=== PATIENT | male | born 1985 | race Caucasian/White ===

== ENCOUNTER 2016-12-04 09:07 | Emergency (ER) | payer OTHER ==
[~2016-12-04] VITALS: Ht 170.2 cm; Wt 96.3 kg
[~2016-12-04 09:07] MED LIST: OXYC1TAB3 PO; TAMS0.4C38 PO
[2016-12-04 09:13] VITALS: TEMP 36.6; Ht 170.2 cm; Wt 96.3 kg
--- NOTE | 2016-12-04 10:15 | DIAGNOSTIC IMAGING REPORT ---
CT LUMBAR SPINE WITHOUT CT DOSE: 604.79 mGycm CLINICAL HISTORY: Low back pain TECHNIQUE: Helical images were acquired in transverse plane. Reformatted sagittal and coronal images were reviewed. CONTRAST: No contrast was administered COMPARISON STUDY: None. FINDINGS: L1-2 level: There is no evidence of significant disc bulge or focal herniation. There is no evidence of spinal or foraminal stenosis. L2-3 level: There is no evidence of significant disc bulge or focal herniation. There is no evidence of spinal or foraminal stenosis. L3-4 level: There is no evidence of significant disc bulge or focal herniation. There is no evidence of spinal or foraminal stenosis. L4-5 level: There is a minimal circumferential disc bulge. There is minimal triangular spinal canal narrowing. There is no significant foraminal narrowing. L5-S1 level: There is no evidence of significant disc bulge or focal herniation. There is no evidence of spinal or foraminal stenosis. There is bilateral nephrolithiasis No fractures or traumatic subluxations are visualized. IMPRESSION: 1. No fractures or subluxations identified 2. Minor circumferential disc bulge at the L4-5 level with minimal triangular spinal canal narrowing 3. Bilateral nephrolithiasis Electronically signed by: Amadou Iyer M.D. 12/04/2016 10:13 AM Dictated Date/Time: 12/04/2016 10:11 AM
[2016-12-04] MEDS ORDERED: KETO10TA PO (10:42)
--- NOTE | 2016-12-04 10:44 | EMERGENCY ROOM VISIT NOTE ---
History Report prepared by Michelle: Mick Wu Under the Supervision of: Dr. Rainer Castaneda D.O. First contact with patient: 09:38 Chief Complaint: BACK PAIN Stated Complaint: LOWER BACK PAIN - SHOOTING PAIN INTO LEGS History of Present Illness The patient is a 31 year old male who presents to the Emergency Room with complaints of lower back pain that began yesterday. He rates his pain a 7/10 in severity. 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 Occasionally, his pain will shoot down his bilateral legs. His pain worsens with movement. If he does not move, his pain is less. He had similar pain in his back before, but it has never been this bad. Source of History: patient Onset: This morning Position: back (lower) Symptom Intensity: 7/10 Quality: sharp Timing: constant Modifying Factors (Worsening): movement Modifying Factors (Relieving): rest Note: He denies any other abnormal symptoms. Review of Systems See HPI for pertinent positives & negatives. A total of 10 systems reviewed and were otherwise negative. Past Medical & Surgical Medical Problems: (1) Acute Pharyngitis (2) Acute Tonsillitis (3) Head Injury, Nos (4) Laceration of lower extremity Family History Diabetes mellitus Heart disease Social History Smoking Status: Never Smoker Alcohol Use: occasionally Marital Status: Occupation Status: employed Current/Historical Medications Scheduled PRN Ketorolac (Toradol), 10 MG PO Q6H PRN for Pain Allergies Coded Allergies: No Known Allergies (Unverified , 12/25/13) Physical Exam Vital Signs Date Time Temp Pulse Resp B/P Pulse Ox O2 Delivery O2 Flow Rate FiO2 12/04/16 09:13 36.6 74 18 114/75 96 Room Air Physical Exam CONSTITUTIONAL/VITAL SIGNS: Reviewed / noted above. GENERAL: Appearance of discomfort with movement. INTEGUMENTARY: Warm, dry, and [place]. HEAD: Normocephalic. EYES: without scleral icterus or trauma. ENT/OROPHARYNX: clear and moist. LYMPHADENOPATHY/NECK: Is supple without lymphadenopathy or meningismus. RESPIRATORY: Lungs clear and equal. CARDIOVASCULAR: Regular rate and rhythm. GI/ABDOMEN: Soft and nontender. No organomegaly or pulsatile mass. No rebound or guarding. Normal bowel sounds. EXTREMITIES: Warm and well perfused. Symmetric reflexes and strength in lower extremities. No motor sensory deficits. BACK: No CVA tenderness. Mild straight leg raise discomfort on the right. NEUROLOGICAL: Intact without focal deficits. PSYCHIATRIC: normal affect. MUSCULOSKELETAL: Normally developed with good muscle tone. Medical Decision & Procedures ER Provider Diagnostic Interpretation: Radiology results as stated below per my review and radiologist interpretation: CT LUMBAR SPINE WITHOUT CT DOSE: 604.79 mGycm CLINICAL HISTORY: Low back pain TECHNIQUE: Helical images were acquired in transverse plane. Reformatted sagittal and coronal images were reviewed. CONTRAST: No contrast was administered COMPARISON STUDY: None. FINDINGS: L1-2 level: There is no evidence of significant disc bulge or focal herniation. There is no evidence of spinal or foraminal stenosis. L2-3 level: There is no evidence of significant disc bulge or focal herniation. There is no evidence of spinal or foraminal stenosis. L3-4 level: There is no evidence of significant disc bulge or focal herniation. There is no evidence of spinal or foraminal stenosis. L4-5 level: There is a minimal circumferential disc bulge. There is minimal triangular spinal canal narrowing. There is no significant foraminal narrowing. L5-S1 level: There is no evidence of significant disc bulge or focal herniation. There is no evidence of spinal or foraminal stenosis. There is bilateral nephrolithiasis No fractures or traumatic subluxations are visualized. IMPRESSION: 1. No fractures or subluxations identified 2. Minor circumferential disc bulge at the L4-5 level with minimal triangular spinal canal narrowing 3. Bilateral nephrolithiasis Electronically signed by: Amadou Iyer M.D. 12/04/2016 10:13 AM Dictated Date/Time: 12/04/2016 10:11 AM ED Course 0938: Previous medical records were reviewed. The patient was evaluated in room B4. A complete history and physical examination was performed. 1046: On reevaluation, the patient is resting. I discussed the results and findings with the patient. He verbalized agreement of the treatment plan. He was discharged home. Medical Decision Differential considered includes cauda equina syndrome, conus medullaris, spinal cord compression syndrome, peripheral nerve compression, fractures or subluxations, intra-abdominal pathology such as abdominal aortic aneurysm or kidney stones, muscle strain, transverse myelitis, spinal cord injury. This is a 31-year-old male who presents to the ED with chief complaint of low back pain. Details listed above. The patient denies any specific injury or trauma. He does work in construction. He states that he awoke with the pain yesterday. He states that the pain occasionally shoots down both of his legs. Currently it is just in his low back. He has obvious increased discomfort with movement on exam. His exam was otherwise unremarkable. His lower strongly neurovascular status is normal. CT scan of the LS spine reveals some minor disc bulges at the L4-L5 level. Otherwise no acute abnormality. He does have a history of kidney stones. His clinical presentation is not consistent with that. The patient was told the results the test. He was discharged on Toradol. He is to follow-up with PCP for further evaluation and care if symptoms persist. Impression Primary Impression: Low back pain Scribe Attestation The scribe's documentation has been prepared under my direction and personally reviewed by me in its entirety. I confirm that the note above accurately reflects all work, treatment, procedures, and medical decision making performed by me. Departure Information Dispostion Home / Self-Care Prescriptions Ketorolac (Toradol) 10 Mg Tab 10 MG PO Q6H Y for Pain, #20 TAB Prov: Rainer Castaneda D.O. 12/04/16 Referrals No Doctor, Assigned (PCP) Forms HOME CARE DOCUMENTATION FORM, IMPORTANT VISIT INFORMATION Patient Instructions Low Back Pain Self Care, My [facility] Additional Instructions Toradol as prescribed for pain. Follow-up with your doctor for further care and evaluation in 3-7 days if symptoms persist. Return to the emergency department for worsening or new symptoms or any concerns. You have been examined and treated today on an emergency basis only. This is not a substitute for, or an effort to provide, complete comprehensive medical care. It is impossible to recognize and treat all injuries or illnesses in a single emergency department visit. It is therefore important that you follow up closely with your doctor. Call as soon as possible for an appointment.
[2016-12-04 10:58] VITALS: BP 136/85; PULSE 64; O2SAT 98
--- NOTE | 2016-12-04 14:57 | Pharmacy Progress Note ---
ED Pharmacist Progress Note Date of Service: December 04, 2016. Pharmacist Bessie called from [facility] pharmacy stating that the Toradol that was prescribed for this patient is not covered by the patient's insurance and the jon is $45.00, which the patient was not willing to pay. I spoke with Dr Castaneda, he stated the patient could have either IBU 600mg PO Q 6 hrs PRN pain # 20, or Naproxen 550mg PO BID PRN pain # 10 - given multiple choices, but only one NSAID may be filled for this patient. I attempted to speak with the pharmacist, however was placed on hold for over 10 minutes. Message was left on the voicemail stating he could have either IBU or Naproxen whichever was cheaper for him but he may only have one.
== END 2016-12-04 10:59 | disposition home or self-care (01) ==
LOC: C.EDB 09:09
DX: M54.5 Low back pain (principal); Z83.3 Family history of diabetes mellitus; Z87.442 Personal history of urinary calculi

== ENCOUNTER 2016-12-09 09:50 | Emergency (ER) | payer OTHER ==
[~2016-12-09 09:50] MED LIST changes: +KETO10TA PO; -OXYC1TAB3 PO; -TAMS0.4C38 PO
[2016-12-09 09:52] VITALS: TEMP 36.7; Ht 170.2 cm
[2016-12-09] MEDS ORDERED: MoRPHine SULFATE 10 MG/ML CARP/VIAL IM STA (10:26)
[2016-12-09] MEDS ORDERED: DEXAMETHASONE SOD INJ 4 MG/ML VIAL IM ONE (10:30)
[2016-12-09] MEDS ORDERED: PRED-301 PO (10:37)
--- NOTE | 2016-12-09 12:02 | DIAGNOSTIC IMAGING REPORT ---
LUMBAR SPINE MRI HISTORY: Pain low back pain, radiation b/l legs TECHNIQUE: Multiplanar multisequence MRI of the lumbar spine was performed without the use of contrast. COMPARISON: None. FINDINGS: For the purpose of the report the L5-S1 disc space will be located on axial image 27 of 30. Normal signal characteristics the vertebral bodies. Mild disc desiccation L4-L5. L1-L2: No significant central canal or neural foraminal narrowing. L2-L3: No significant central canal or neural foraminal narrowing. L3-L4: No significant central canal or neural foraminal narrowing. L4-L5: Central bulging disc creating mild impact anterior thecal sac. Neuroforamina are patent bilaterally. L5-S1: No significant central canal or neural foraminal narrowing. IMPRESSION: 1. Central bulging disc L4-L5.. 2. Minimal impact upon the anterior thecal sac. 3. Study is otherwise negative. Electronically signed by: David Fierro M.D. 12/09/2016 12:01 PM Dictated Date/Time: 12/09/2016 12:00 PM
[2016-12-09] MEDS ORDERED: OXYC-57 PO (12:42)
--- NOTE | 2016-12-09 12:43 | EMERGENCY ROOM VISIT NOTE ---
History First contact with patient: 09:57 Chief Complaint: BACK PAIN Stated Complaint: BACK PAIN History of Present Illness The patient is a 31 year old male who presents to the Emergency Room with complaints of low back pain. The patient states he has had pain in the low back for the past 5 days. The patient states that the pain came on gradually. He was seen here last week and had a CT scan. He was prescribed an anti- inflammatory and has been taking that over the weekend. He states that he also followed up with his primary care provider 3 days ago and they started him on a prednisone taper. The patient was feeling better and was sent to to go back to work yesterday. He states that when he bent over, he felt a pop in his back and had increased pain since then. He has had difficulty moving and walking due to the pain. He was seen by his primary care provider yesterday and prescribed a muscle relaxer which she is taking without relief. He denies taking any other medications for pain. He rates his pain a 9/10. The pain radiates down both of the legs. He denies any numbness, weakness, abdominal pain, nausea/vomiting, urinary symptoms, bowel or bladder incontinence. He denies any history of back problems. Review of Systems A complete 6 point review of systems was reviewed with the patient with pertinent positives and negatives as per history of present illness. All else were negative. Past Medical/Surgical History Medical Problems: (1) Acute Pharyngitis (2) Acute Tonsillitis (3) Head Injury, Nos (4) Laceration of lower extremity Family History Diabetes mellitus Heart disease Social History Smoking Status: Former Smoker Alcohol Use: occasionally Marital Status: Occupation Status: employed Current/Historical Medications Scheduled Prednisone (Prednisone), 0 PO UD Scheduled PRN Oxycodone/Acetaminophen 5MG/325MG (Percocet 5MG/325MG), 1-2 TABS PO Q4H PRN for Pain Allergies Coded Allergies: No Known Allergies (Unverified , 12/09/16) Physical Exam Vital Signs Date Time Temp Pulse Resp B/P Pulse Ox O2 Delivery O2 Flow Rate FiO2 12/09/16 12:54 75 18 119/77 96 12/09/16 11:05 82 18 131/72 98 Room Air 12/09/16 09:52 36.7 105 18 134/85 97 Room Air Physical Exam VITALS: Vitals are noted on the nurse's note and reviewed by myself. No abnormalities noted. GENERAL: This is a 31-year-old male, in no acute distress, nondiaphoretic, well- developed well-nourished. SKIN: The skin was without rashes. EYES: Pupils equal round and reactive to light and accommodation. NECK: Supple without nuchal rigidity. No cervical spine tenderness. HEART: Regular rate and rhythm without murmurs gallops or rubs. LUNGS: Clear to auscultation bilaterally without wheezes, rales or rhonchi. ABDOMEN: MUSCULOSKELETAL: No muscle atrophy, erythema, or edema noted of the back. There is no tenderness over the lumbar spinous processes. There is tenderness over the left lumbar region. There is no tenderness over the thoracic spine or paraspinous muscles. There are no muscle spasms present. The patient is slow to move around but has full range of motion of the spine. Negative straight leg raise test. Strength is slightly decreased in the left lower extremity compared to the right. NEURO: Patient was alert and oriented to person place and time. Normal sensation to light and sharp touch. Deep tendon reflexes 2+ in the lower extremities. Dorsalis pedis pulse 2+ bilaterally. Medical Decision & Procedures ER Provider Diagnostic Interpretation: LUMBAR SPINE MRI HISTORY: Pain low back pain, radiation b/l legs TECHNIQUE: Multiplanar multisequence MRI of the lumbar spine was performed without the use of contrast. COMPARISON: None. FINDINGS: For the purpose of the report the L5-S1 disc space will be located on axial image 27 of 30. Normal signal characteristics the vertebral bodies. Mild disc desiccation L4-L5. L1-L2: No significant central canal or neural foraminal narrowing. L2-L3: No significant central canal or neural foraminal narrowing. L3-L4: No significant central canal or neural foraminal narrowing. L4-L5: Central bulging disc creating mild impact anterior thecal sac. Neuroforamina are patent bilaterally. L5-S1: No significant central canal or neural foraminal narrowing. IMPRESSION: 1. Central bulging disc L4-L5.. 2. Minimal impact upon the anterior thecal sac. 3. Study is otherwise negative. Medications Administered Medications (Trade) Dose Ordered Sig/Shalom Route Start Time Stop Time Status Last Admin Dose Admin Dexamethasone Sodium Phosphate (Decadron Inj) 10 mg NOW ONCE IM 12/09/16 10:30 12/09/16 10:31 DC 12/09/16 10:37 10 MG Morphine Sulfate (MoRPHine SULFATE INJ) 8 mg NOW STAT IM 12/09/16 10:26 12/09/16 10:28 DC 12/09/16 10:38 8 MG Medical Decision Differential diagnosis includes herniated disc, muscular strain, epidural abscess, cauda equina syndrome, malignancy, among others. The patient was evaluated as above. Previous records were reviewed. The patient was seen here last week for the same symptoms. At that time, a CT scan was performed which showed a bulging disc at L4 and L5. The patient was discharged home on Toradol but states that the insurance would not cover it and it was later changed to naproxen. The patient states his symptoms are worsening and he is unable to walk due to the pain. For this reason, an MRI was performed which did show some mild disc bulging at L4 to L5. The patient and his or informed of these findings and I had a lengthy discussion with him regarding today's testing and the treatment plan. The patient was treated with 8 mg morphine IM and 10 mg Decadron IM in the emergency department. He did feel better and was able to move more comfortably after this treatment. He will be given a short course of pain medication but was instructed to follow-up with his primary care provider and a camp recreation specialist for further evaluation of his ongoing back pain. He verbalized understanding of my assessment and treatment plan and was discharged home in good condition. [place] Drug Monitoring Program Search Results: patient reviewed within database, no issues identified Impression Primary Impression: L4-L5 disc bulge Departure Information Dispostion Home / Self-Care Condition GOOD Prescriptions Oxycodone/Acetaminophen 5MG/325MG (PERCOCET 5MG/325MG) Tab 1-2 TABS PO Q4H Y for Pain, #15 TAB For Initial Treatment Prov: Alicia Streeter ., JENN 12/09/16 Referrals Ronit Wood DO (PCP) Adin Monroy DO Forms HOME CARE DOCUMENTATION FORM, IMPORTANT VISIT INFORMATION Patient Instructions My [facility] Additional Instructions You have been treated in the Emergency Department for Back Pain. You have received pain medicine in the emergency department which impairs your ability to operate a vehicle. It is illegal for you to drive after receiving these medicines. You have been prescribed Percocet to be used for pain control. This is a narcotic medication. You cannot drive or consume alcohol while on this medicine. This medicine should only be used for pain that cannot be controlled with [id number] pain medicines. For pain control, you can use the following [id number] medicines (if >12 yo): - Regular strength (325mg/tab) Tylenol (acetaminophen) 2 tabs every 4-6 hours as needed. Do not exceed 12 tablets in a 24 hour period. Avoid taking more than 4 grams (4000 mg) of Tylenol per day. This includes any other sources of acetaminophen you may take on a regular basis. - Regular strength (200 mg/tab) Advil (ibuprofen) 1-2 tabs every 4-6 hours as needed. Do not exceed a dose of 3200 mg per day. If this is an acute injury, ice can be applied to the area of pain for the first 3 days to help decrease pain and inflammation. After the first 3 days, a heating pad can be used over the area for continued soothing relief. You should schedule a follow-up appointment in 2-3 days with your Primary Care Provider for further evaluation and treatment of your back pain. Follow up with Dr. Monroy. Return to the Emergency Department if your current symptoms worsen despite treatment course outlined above, or if you develop any of the following symptoms : intractable pain despite aforementioned treatment course, loss of control of your bowel or bladder, numbness or tingling in your groin, or development of a fever.
[2016-12-09 12:54] VITALS: BP 119/77; PULSE 75; O2SAT 96
== END 2016-12-09 12:55 | disposition home or self-care (01) ==
LOC: C.EDB 09:52
DX: M51.26 Other intervertebral disc displacement, lumbar region (principal); Z83.3 Family history of diabetes mellitus; Z87.891 Personal history of nicotine dependence

== ENCOUNTER 2017-05-11 17:13 | Emergency (ER) | payer OTHER ==
[~2017-05-11] VITALS: Ht 170.2 cm; Wt 103.0 kg
[~2017-05-11 17:13] MED LIST changes: -KETO10TA PO; +OXYC-57 PO; +PRED-301 PO
[2017-05-11 17:17] VITALS: TEMP 36.8
[2017-05-11] MEDS ORDERED: DULO-24 PO (17:50)
[2017-05-11 17:52] VITALS: O2SAT 98; Ht 170.2 cm; Wt 103.0 kg
[2017-05-11 17:52] LABS: BASO % 0.3 %; BASO ABS # 0.02 K/uL (0-0.2); COMPLETE YES; EOS % 1.2 %; HEMATOCRIT 42.6 % (42-52); IG% 0.3 %; LYMPH % 22.9 %; LYMPH ABS # 1.71 K/uL (1.2-3.4); MEAN CELL VOLUME 86.8 fL (80-100); MEAN CORPUSCULAR HEMOGLOBIN 29.7 pg (25-34); MEAN CORPUSCULAR HGB CONC 34.3 g/dl (32-36); MEAN PLATELET VOLUME 10.2 fL (7.4-10.4); MONO % 6.8 %; NEUT % 68.5 %; PLATELET COUNT 182 K/uL (130-400); RED BLOOD COUNT 4.91 M/uL (4.7-6.1); WHITE BLOOD COUNT 7.46 K/uL (4.8-10.8)
[2017-05-11 18:05] LABS: PARTIAL THROMBOPLASTIN RATIO 1.3; PROTHROMBIN TIME (PATIENT) 10.3 SECONDS (9.0-12.0)
[2017-05-11 18:10] LABS: BUN/CREATININE RATIO 12.3 (10-20); CALCIUM 8.9 mg/dl (8.5-10.1); CREATININE 0.8 mg/dl (0.60-1.40); POTASSIUM 3.8 mmol/L (3.5-5.1)
--- NOTE | 2017-05-11 18:31 | DIAGNOSTIC IMAGING REPORT ---
RIGHT LOWER EXTREMITY VENOUS DOPPLER HISTORY: Right leg pain and swelling. EVALUATE FOR DVT COMPARISON STUDY: None. FINDINGS: There is normal compressibility, flow, and augmentation within the right lower extremity deep venous system. Mildly enlarged right inguinal lymph node measuring 2.9 x 1.3 x 1.2 cm. Subcutaneous edema within the lower calf. IMPRESSION: No DVT within the right lower extremity. Mildly enlarged right inguinal lymph node. Electronically signed by: Massimo Arreola M.D. 05/11/2017 6:30 PM Dictated Date/Time: 05/11/2017 6:29 PM
[2017-05-11] MEDS ORDERED: CEFTRIAXONE SOD INJ 1 GM ADDVIAL IV STA (18:37)
[2017-05-11] MEDS ORDERED: SEPTRA DS HOME PACK 1 EA VIAL PO ONE ×2 (18:45→19:00)
[2017-05-11] MEDS ORDERED: CEPH500C PO (18:46)
[2017-05-11] MEDS ORDERED: SULF800T23 PO (18:46)
[2017-05-11 19:31] VITALS: BP 134/84; PULSE 86; O2SAT 99
--- NOTE | 2017-05-11 22:01 | EMERGENCY ROOM VISIT NOTE ---
History First contact with patient: 17:21 Chief Complaint: LEG PAIN,LEG INJURY Stated Complaint: RT LEG, PAIN AND SWELLING- R/O DVT History of Present Illness The patient is a 31 year old male who presents to the Emergency Room with complaints of right leg pain and swelling that is slightly erythematous and then progressively worse over the past week he was started on Keflex by [facility]. No history of MRSA. No recent travel. He does chew tobacco. Patient denies chest pain, dyspnea, abdominal pain, numbness, tingling, injury to the area, thigh pain, fever, chills. He is tolerating by mouth fluids and food. No history of blood clots. Review of Systems See HPI for pertinent positives & negatives. A total of 10 systems reviewed and were otherwise negative. Past Medical/Surgical History Medical Problems: (1) Acute Pharyngitis (2) Acute Tonsillitis (3) Head Injury, Nos (4) Laceration of lower extremity Family History Diabetes mellitus Heart disease Social History Smoking Status: Former Smoker Alcohol Use: occasionally Drug Use: none Marital Status: Occupation Status: employed Current/Historical Medications Scheduled Cephalexin Monohydrate (Keflex), 500 MG PO QID Duloxetine Hcl (Cymbalta), 1 CAP PO DAILY Sulfa/Trimethoprim (Bactrim Ds 800MG/160MG), 1 TAB PO BID Physical Exam Vital Signs Date Time Temp Pulse Resp B/P (MAP) Pulse Ox O2 Delivery O2 Flow Rate FiO2 05/11/17 19:31 86 18 134/84 99 05/11/17 17:52 98 Room Air 05/11/17 17:17 36.8 79 20 143/86 97 Room Air Physical Exam VITALS: Vitals are noted on the nurse's note and reviewed by myself. Vital signs stable. GENERAL: Pleasant male, in no acute distress, nondiaphoretic, well-developed well-nourished. SKIN: The skin was without rashes, or bruising. There is no tenting of the skin. Capillary reflex less than 2 seconds. HEAD: Normocephalic atraumatic. EARS: External auditory canals clear, tympanic membranes pearly johnson without erythema or effusion bilaterally. EYES: Pupils equal round and reactive to light and accommodation. Conjunctivae without injection, sclerae without icterus. Extraocular movements intact. NOSE: Patent, turbinates without inflammation or discharge. MOUTH: Mucous membranes moist. Pharynx without erythema or exudate. Uvula midline. Airway patent. Tongue does not deviate. NECK: Supple without nuchal rigidity. No lymphadenopathy. No thyromegaly. Cervical spine is nontender. No JVD. HEART: Regular rate and rhythm without murmurs gallops or rubs. LUNGS: Clear to auscultation bilaterally without wheezes, rales or rhonchi. No dullness to percussion. No retractions or accessory muscle use. ABDOMEN: Positive bowel sounds x 4. Normal tympanic percussion. Soft, nontender, without masses or organomegaly. Thorne sign negative. No guarding or rebound tenderness. MUSCULOSKELETAL: No muscle atrophy noted. Right lower leg erythematous and slightly edematous with positive Homans sign to the right calf. Pedal pulses + 2 equal present bilaterally. NEURO: Patient was alert and oriented to person place and time. Normal sensation to light and sharp touch. No focal neurological deficits. Medical Decision & Procedures Laboratory Results 05/11/17 17:40 Red Blood Count 4.91, Mean Corpuscular Volume 86.8, Mean Corpuscular Hemoglobin 29.7, Mean Corpuscular Hemoglobin Concent 34.3, Mean Platelet Volume 10.2, Neutrophils (%) (Auto) 68.5, Lymphocytes (%) (Auto) 22.9, Monocytes (%) (Auto) 6.8, Eosinophils (%) (Auto) 1.2, Basophils (%) (Auto) 0.3, Neutrophils # (Auto) 5.11, Lymphocytes # (Auto) 1.71, Monocytes # (Auto) 0.51, Eosinophils # (Auto) 0.09, Basophils # (Auto) 0.02 05/11/17 17:40 Test 05/11/17 17:40 White Blood Count 7.46 K/uL (4.8-10.8) Red Blood Count 4.91 M/uL (4.7-6.1) Hemoglobin 14.6 g/dL (14.0-18.0) Hematocrit 42.6 % (42-52) Mean Corpuscular Volume 86.8 fL (80-100) Mean Corpuscular Hemoglobin 29.7 pg (25-34) Mean Corpuscular Hemoglobin Concent 34.3 g/dl (32-36) Platelet Count 182 K/uL (130-400) Mean Platelet Volume 10.2 fL (7.4-10.4) Neutrophils (%) (Auto) 68.5 % Lymphocytes (%) (Auto) 22.9 % Monocytes (%) (Auto) 6.8 % Eosinophils (%) (Auto) 1.2 % Basophils (%) (Auto) 0.3 % Neutrophils # (Auto) 5.11 K/uL (1.4-6.5) Lymphocytes # (Auto) 1.71 K/uL (1.2-3.4) Monocytes # (Auto) 0.51 K/uL (0.11-0.59) Eosinophils # (Auto) 0.09 K/uL (0-0.5) Basophils # (Auto) 0.02 K/uL (0-0.2) RDW Standard Deviation 40.6 fL (36.4-46.3) RDW Coefficient of Variation 12.7 % (11.5-14.5) Immature Granulocyte % (Auto) 0.3 % Immature Granulocyte # (Auto) 0.02 K/uL (0.00-0.02) Prothrombin Time 10.3 SECONDS (9.0-12.0) Prothromb Time International Ratio 1.0 (0.9-1.1) Activated Partial Thromboplast Time 32.7 SECONDS (21.0-31.0) Partial Thromboplastin Ratio 1.3 Anion Gap 6.0 mmol/L (3-11) Est Creatinine Clear Calc Drug Dose 155.8 ml/min Estimated GFR () 139.9 Estimated GFR (Non- 120.7 BUN/Creatinine Ratio 12.3 (10-20) Calcium Level 8.9 mg/dl (8.5-10.1) Total Bilirubin 0.3 mg/dl (0.2-1) Aspartate Amino Transf (AST/SGOT) 32 U/L (15-37) Alanine Aminotransferase (ALT/SGPT) 53 U/L (12-78) Alkaline Phosphatase 80 U/L (45-117) Total Protein 7.8 gm/dl (6.4-8.2) Albumin 3.9 gm/dl (3.4-5.0) Globulin 3.9 gm/dl (2.5-4.0) Albumin/Globulin Ratio 1.0 (0.9-2) Medications Administered Medications (Trade) Dose Ordered Sig/Shalom Route Start Time Stop Time Status Last Admin Dose Admin Ceftriaxone Sodium (Rocephin Inj) 1 gm NOW STAT IV 05/11/17 18:37 05/11/17 18:38 DC 05/11/17 18:54 1 GM Trimethoprim/ Sulfamethoxazole (Sulfameth/ Trimeth Ds 800/ 160MG Home Pack) 1 homepack UD ONCE PO 05/11/17 18:45 05/11/17 18:46 DC 05/11/17 18:54 1 HOMEPACK ED Course Prior records reviewed and summarized as above. Triage Nursing notes reviewed. Additional history obtained from family The patient's history was concerning for swelling and redness of the skin. Differential diagnosis: Etiologies such as cellulitis, abscess, MRSA infection, DVT, necrotizing fasciitis, dermatitis, drug eruption, as well as others were entertained.. Physical examination: The physical examination was consistent with cellulitis ER treatment provided: Rocephin, Bactrim On reassessment the patient felt better. Diagnostics interpreted by me: The labs revealed no worrisome electrolyte abnormality. No leukocytosis Imaging studies: RIGHT LOWER EXTREMITY VENOUS DOPPLER HISTORY: Right leg pain and swelling. EVALUATE FOR DVT COMPARISON STUDY: None. FINDINGS: There is normal compressibility, flow, and augmentation within the right lower extremity deep venous system. Mildly enlarged right inguinal lymph node measuring 2.9 x 1.3 x 1.2 cm. Subcutaneous edema within the lower calf. IMPRESSION: No DVT within the right lower extremity. Mildly enlarged right inguinal lymph node. Electronically signed by: Massimo Arreola M.D. 05/11/2017 6:30 PM This appears to be isolated cellulitis. Patient was also added and Bactrim for better MRSA coverage. No DVT and ultrasound. No leukocytosis. He is well- appearing. He was advised to take antibiotics as directed and to follow-up family care in a few days or here in the ER sooner for fevers, vomiting, increasing redness, worsening signs or symptoms or as needed.By the evaluation outlined above emergent etiologies such as abscess, necrotizing fasciitis, DVT, as well as others were deemed relatively unlikely. The pt informed about the findings as listed above. All questions were answered and pleased with the treatment. Return instructions were outlined and the patient was discharged in stable condition. Outpatient prescription management: Bactrim, Keflex Referral: The patient was referred back to primary care physician for follow-up in 2 to 3 days for a recheck of the current condition. Case reviewed with my attending Medical Decision As above Medication Reconcilliation Current Medication List: was personally reviewed by me Blood Pressure Screening Patient's blood pressure: Elevated blood pressure Blood pressure disposition: Elevated BP felt to be situational Impression Primary Impression: Cellulitis of right lower leg Departure Information Dispostion Home / Self-Care Condition [facility]IR Prescriptions Sulfa/Trimethoprim (Bactrim Ds 800MG/160MG) Tab 1 TAB PO BID for 10 Days, #20 TAB Prov: Fe Padilla PA-C 05/11/17 Cephalexin Monohydrate (Keflex) 500 Mg Cap 500 MG PO QID for 10 Days, #40 CAP Prov: Fe Padilla PA-C 05/11/17 Forms HOME CARE DOCUMENTATION FORM, Work Instructions, Return To Work: 3 days IMPORTANT VISIT INFORMATION Patient Instructions Cellulitis - [facility] [place] Additional Instructions Cephalexin(Keflex) 500mg: Take one pill four times daily for 10 days for your skin infection. All antibiotics can cause diarrhea. If this occurs and you feel worse or it does not resolve in 1-2 days follow up with your doctor or return to the Emergency Department as this could be signs of serious underlying problems. Any medication can cause an allergic reaction, stop the pills immediately and return to the ER for rash, hives, breathing difficulties, or swelling. Trimethoprim-Sulfamethoxazole(Bactrim DS): Take one pill twice daily for 10 days for your skin infection. All antibiotics can cause diarrhea. If this occurs and you feel worse or it does not resolve in 1-2 days follow up with your doctor or return to the Emergency Department as this could be signs of serious underlying problems. Any medication can cause an allergic reaction, stop the pills immediately and return to the ER for rash, hives, breathing difficulties, or swelling. Ibuprofen(Motrin, Advil) may be used for fever or pain. Use 600mg every six hours as needed. Take with food. Avoid using more than 2400mg in a 24 hour period. Do not use 2400mg per day for more than three consecutive days without physician direction. Prolonged inappropriate use can lead to stomach upset or ulcers. (AND/OR) Acetaminophen(Tylenol) may be used for fever or pain. Use 1000mg every six hours as needed. Avoid using more than 3000mg in a 24 hour period. Warm compresses to the affected area 4 times daily for 15-20 minutes. Rest and drink plenty of fluids. Continue current medications. Return to the ER for severe pain, persistent fevers, spreading redness, or any worsening of your condition. Follow up with your primary physician within 2-3 days for a recheck of the current condition. Work Instructions Return To Work: 3 days
== END 2017-05-11 19:32 | disposition home or self-care (01) ==
LOC: C.EDB 17:18 → C.EDA 19:32
DX: L03.115 Cellulitis of right lower limb (principal); F17.220 Nicotine dependence, chewing tobacco, uncomplicated; Z83.3 Family history of diabetes mellitus; Z82.49 Family history of ischemic heart disease and other diseases of the circulatory system; Z79.899 Other long term (current) drug therapy